=== PATIENT | male | born 1980 | race Caucasian/White ===

== ENCOUNTER 2018-10-22 04:08 | Emergency (ER) | payer SELFPAY ==
[~2018-10-22] VITALS: Ht 175.3 cm; Wt 142.4 kg
[2018-10-22 04:09] VITALS: BP 141/70; Ht 175.3 cm; Wt 142.4 kg
== END 2018-10-22 04:23 | disposition left against medical advice (07) ==
LOC: ED 04:08
DX: Z53.21 Procedure and treatment not carried out due to patient leaving prior to being seen by health care provider (principal)

== ENCOUNTER 2020-12-01 14:46 | Emergency (ER) | payer OTHER ==
[~2020-12-01] VITALS: Ht 175.3 cm; Wt 136.1 kg
[2020-12-01 15:08] VITALS: BP 158/96; Ht 175.3 cm; Wt 136.1 kg
== END 2020-12-01 16:00 ==
LOC: ED 14:46
DX: Z02.89 Encounter for other administrative examinations (principal)